=== PATIENT | male | born 1995 | race Caucasian/White ===

== ENCOUNTER 2022-06-08 20:24 | Emergency (ER) | payer BC ==
[~2022-06-08] VITALS: Ht 167.6 cm; Wt 56.7 kg
[2022-06-08 22:42] VITALS: BP 134/72
--- NOTE | 2022-06-08 22:45 | NUR ---
TO ER [facility] C/O LAC ON R FOREARM S/P DOG BITE X2 DAYS AGO. KNOWN DOG. PT WILL NEED TO UPDATE TDAP, AAOX4, BREATHING EVEN AND NON LABORED, AWAITING MD ORDERS
[2022-06-08] MEDS ORDERED: AMOX-430 PO (23:04)
[2022-06-08] MEDS ORDERED: AMOX/CLAVULANATE 875 MG TABLET ONE (23:07)
[2022-06-08] MEDS ORDERED: TDAP [DIPH/PERTUSSIS/TET] 0.5 ML VIAL IM ONE ×2 (23:07→23:30)
--- NOTE | 2022-06-08 23:10 | NUR ---
Patient discharged to home in stable condition. Written and verbal after care instructions given. Patient verbalizes understanding of instruction.
[2022-06-08] MEDS ORDERED: AMOX/CLAVULANATE 875 MG TABLET PO ONE (23:30)
== END 2022-06-08 23:11 | disposition home or self-care (01) ==
LOC: ER 20:27
DX: L03.113 Cellulitis of right upper limb (principal)
CPT/HCPCS: 90715